=== PATIENT | female | born 1990 | race Native Hawaiian/Other Pacific Islander ===

== ENCOUNTER 2016-07-19 15:29 | Emergency (ER) | payer OTHER ==
[2016-07-19 15:40] VITALS: BP 108/73; PULSE 88; RESP 18; TEMP 98.2; O2SAT 98
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
--- NOTE | 2016-07-20 09:58 | RAD ---
PROCEDURE: Right Hand Radiographs. HISTORY: carpal pain s.p fall COMPARISON: None. FINDINGS: BONES: Normal. No fracture. JOINTS: Normal. No osteoarthritic changes. SOFT TISSUES: Normal. OTHER FINDINGS: None. IMPRESSION: Normal right hand radiographs.
== END 2016-07-19 17:56 | disposition home or self-care (01) ==
LOC: H.ER 15:29
DX: S09.90XA Unspecified injury of head, initial encounter (principal); S60.511A Abrasion of right hand, initial encounter; V03.90XA Pedestrian on foot injured in collision with car, pick-up truck or van, unspecified whether traffic or nontraffic accident, initial encounter; Y93.K1 Activity, walking an animal; Y92.9 Unspecified place or not applicable